=== PATIENT | female | born 1935 | race Caucasian/White ===

== ENCOUNTER → 2017-06-27 | Outpatient (CLI) | payer OTHER, BC ==
--- NOTE | 2017-06-27 09:19 | RAD ---
Examination: Left knee, three views History: Osteoarthritis Findings: No definite trauma, bone destruction, patellar displacement or synovial effusion. No joint narrowing is appreciated. Impression: No significant or acute abnormality demonstrated. Reported By:
--- NOTE | 2017-06-27 09:19 | RAD ---
Examination: Right knee, three views History: Osteoarthritis Findings: There is degenerative narrowing of lateral greater than medial compartments with marginal o steophytes. No fracture, osteolytic process or synovial effusion. Impression: Lateral and medial compartment osteoarthritis, no acute features demonstrated Reported By:
== END ==
LOC: RAD 08:39
PROVIDERS: ATTEND Nurse Practitioner Family
DX: M17.0 Bilateral primary osteoarthritis of knee (principal)
CPT/HCPCS: 73560

== ENCOUNTER 2025-01-13 05:59 | Observation (INO) ==
--- NOTE | 2025-01-13 06:14 | EKG ---
Test Reason : dizziness, numbness Blood Pressure : */* mmHG Vent. Rate : 61 BPM Atrial Rate : 61 BPM P-R Int : 260 ms QRS Dur : 102 ms QT Int : 482 ms P-R-T Axes : 77 -2 44 degrees QTc Int : 485 ms Atrial-paced rhythm with prolonged AV conduction Low voltage QRS Incomplete right bundle branch block Nonspecific ST and T wave abnormality Prolonged QT Abnormal ECG When compared with ECG of 28-JUN-2023 10:54, Electronic atrial pacemaker has replaced Sinus rhythm Borderline criteria for Inferior infarct are no longer present Confirmed by Ramesh Leung MD ([id number]) on 01/13/2025 7:27:17 AM Referred By: Confirmed By: Ramesh Leung MD
[2025-01-13 06:23] LABS: MEAN PLATELET VOLUME 8.0 fL (7.4-11.0); RED CELL DISTRIBUTION WIDTH 14.5 % (11.6-16.5)
[2025-01-13 06:35] LABS: INR 1.33 (0.8-1.3)
[2025-01-13 06:43] LABS: PLATELET MORPHOLOGY COMMENT NORMAL (NORMAL)
[2025-01-13 06:46] LABS: COR NA(FOR HYPERGLY) 141 mmol/L (136-145); CREATININE 0.84 mg/dL (0.55-1.02); eGFR NON BLACK RACES > 60 (>60)
--- NOTE | 2025-01-13 06:59 | DR.DIZZY ---
HPI Time seen Time Seen by Provider: 01/13/25 06:56 PCP Primary Care Physician: mya lawton HPI Comment HPI Comment: Patient states she has been having weakness and dizziness on and off for weeks and last night she had an episode while she was sitting and fell forward hitting her head. Patient states prior to that she had some tingling of her lip and numbness on her left upper extremity as well as weakness on her left lower extremity. 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 At this time, she states her symptoms are completely resolved. Complaint Chief Complaint:: pt stated on last night she had fall. she stated at that time she started having some weakness on her left side with dizzness. she stated on this morning the weakness and dizziness seem worse and it feels as if her left leg is going to give out. pt denies pain at this time. COVID-19 Coronavirus risk:travel/contact w/high risk person: No Has patient experienced Coronavirus symptoms: No Source History Provided: Patient Mode of Arrival Mode of Arrival: EMS Timing Onset of Chief Complaint: 01/13/25 PMH PMH Past Medical History: Yes Past Medical History: Hypertension and Hypothyroidism Past Surgical History: Yes Surgical History: Hysterectomy Past Surgical History Comment: pacemaker Family History History of Family Medical Conditions: No Social History Alcohol Use: None Do you use any recreational Drugs:: No Lives With: Family Lives Where: Home Travel Risk Coronavirus risk:travel/contact w/high risk person: No Has patient experienced Coronavirus symptoms: No Infectious screening Have you traveled outside the country in the last 6 months?: No Isolation: Standard ROS Review of Systems Constitutional: No Symptoms Reported Eyes: No Symptoms Reported ENTM: No Symptoms Reported Respiratoy: No Symptoms Reported; negative Short of Breath or Wheezing Cardiovascular: No Symptoms Reported; negative Chest Pain, Edema, Palpitations or Syncope Gastrointestinal/Abdominal: No Symptoms Reported Genitourinary: No Symptoms Reported Neurological: See HPI, Numbness, Tingling, Weakness and Dizziness; negative Seizure or Speech Problem Musculoskeletal: No Symptoms Reported Integumentary: No Symptoms Reported Hematologic/Lymphatic: No Symptoms Reported Endocrine: No Symptoms Reported Psychiatric: No Symptoms Reported All Other Systems: Reviewed and Negative PE Vital Signs Vitals: Vital Signs Temperature 97.9 F Pulse Rate 60 Pulse Rate 60 Pulse Rate 60 Pulse Rate 60 Respiratory Rate 20 Respiratory Rate 27 Respiratory Rate 20 Blood Pressure 142/63 Blood Pressure 149/64 Blood Pressure 195/77 O2 Sat by Pulse Oximetry 98 O2 Sat by Pulse Oximetry 97 O2 Sat by Pulse Oximetry 99 General Limitations: No Limitations General Appearance: Alert and In No Apparent Distress Head Head Exam: Normal Inspection Eyes Eye exam: Normal Appearance ENT ENT Exam: Normal Exam, Normal Oropharynx and Normal External Ear Exam Neck Neck Exam: Normal Inspection and Full ROM Chest Chest Inspection: Normal Inspection Respiratory Respiratory Exam: Normal Lung Sounds Bilat Cardiovascular Cardiovascular Exam: Regular Rate and Normal Rhythm Abdominal Exam Abdominal Exam: Normal Inspection, Normal Bowel Sounds and Soft Rectal Rectal Exam: Deferred Extremeties Extremities Exam: Normal Inspection and Full ROM Back Back Exam: Normal Inspection and Full ROM Neurologic Neurological Exam: Alert and Oriented X3 Speech: Fluid Speech Cerebellar Function: Finger to Nose: Normal DTR: Patellar (L): 2+ and patellar (R): 2+ Psychiatric Psychiatric Exam: Normal Affect and Normal Mood Skin Skin Exam: Warm, Dry, Intact and Normal Color ROR Labs Reviewed 01/13/25 06:13 01/13/25 06:13 Laboratory: WBC 10.0 X10^3/uL (3.6-10.0) 01/13/25 06:13 RBC 4.28 X10^6/uL (3.5-5.4) 01/13/25 06:13 Hgb 13.4 g/dL (12.0-16.0) 01/13/25 06:13 Hct 39.5 % (36.0-47.0) 01/13/25 06:13 MCV 92.3 fL (80.0-100.0) 01/13/25 06:13 MCH 31.2 pg (27.0-34.0) 01/13/25 06:13 MCHC 33.8 g/dL (33.0-35.0) 01/13/25 06:13 RDW 14.5 % (11.6-16.5) 01/13/25 06:13 Plt Count 227 X10^3/uL (150.0-450.0) 01/13/25 06:13 Plt Count Comment Adequate (ADEQUATE) 01/13/25 06:13 MPV 8.0 fL (7.4-11.0) 01/13/25 06:13 Neut % (Auto) 63.0 % (42.0-75.0) 01/13/25 06:13 Lymph % (Auto) 26.7 % (21.0-51.0) 01/13/25 06:13 [place] % (Auto) 5.6 % (0.0-13.0) 01/13/25 06:13 Eos % (Auto) 1.9 % (0.9-2.9) 01/13/25 06:13 Baso % (Auto) 2.8 % (0.2-1.0) H 01/13/25 06:13 Neut # (Auto) 6.3 x10^3/uL (2.2-4.8) H 01/13/25 06:13 Lymph # (Auto) 2.7 X10^3/uL (1.3-2.9) 01/13/25 06:13 [place] # (Auto) 0.6 x10^3/uL (0.3-0.8) 01/13/25 06:13 Eos # (Auto) 0.2 x10^3/uL (0.0-0.2) 01/13/25 06:13 Baso # (Auto) 0.3 X10^3/uL (0.0-0.1) H 01/13/25 06:13 Absolute Nucleated RBC 0.1 /100WBC 01/13/25 06:13 Total Counted 100 01/13/25 06:13 Neutrophils % (Manual) 56 % (39-76) 01/13/25 06:13 Lymphocytes % (Manual) 37 % (13-43) 01/13/25 06:13 Monocytes % (Manual) 5 % (4-9) 01/13/25 06:13 Eosinophils % (Manual) 1 % (0-6) 01/13/25 06:13 Atypical Lymphocytes Present 01/13/25 06:13 Plt Morphology Comment Normal (NORMAL) 01/13/25 06:13 RBC Morphology Normal (NORMAL) 01/13/25 06:13 PT 16.6 SECONDS (11.8-14.3) 01/13/25 06:13 INR Target Range - 01/13/25 06:13 INR 1.33 (0.8-1.3) H 01/13/25 06:13 APTT 33.3 SECONDS (22.9-36.5) 01/13/25 06:13 PTT Comment - 01/13/25 06:13 Sodium 141 mmol/L (136-145) 01/13/25 06:13 Corrected Sodium 141 mmol/L (136-145) 01/13/25 06:13 Potassium 4.2 mmol/L (3.5-5.1) 01/13/25 06:13 Chloride 103 mmol/L (98-107) 01/13/25 06:13 Carbon Dioxide 30.8 mmol/L (21-32) 01/13/25 06:13 BUN 13 mg/dL (7-18) 01/13/25 06:13 Creatinine 0.84 mg/dL (0.55-1.02) 01/13/25 06:13 Est GFR (MDRD) Af Amer > 60 (>60) 01/13/25 06:13 Est GFR (MDRD) Non-Af > 60 (>60) 01/13/25 06:13 Glucose 113 mg/dL (65-99) H 01/13/25 06:13 Calcium 9.4 mg/dL (8.5-10.1) 01/13/25 06:13 Corrected Calcium TNP 01/13/25 06:13 Total Bilirubin 0.40 mg/dL (0.2-1.0) 01/13/25 06:13 AST 15 Units/L (15-37) 01/13/25 06:13 ALT 17 Units/L (12-78) 01/13/25 06:13 Alkaline Phosphatase 153 Units/L (46-116) H 01/13/25 06:13 Creatine Kinase 23 Units/L (26-192) L 01/13/25 06:13 Troponin I High Sens 4.2 ng/L (4.0-60.0) 01/13/25 06:13 Total Protein 9.3 g/dL (6.4-8.2) H 01/13/25 06:13 Albumin 4.0 g/dL (3.4-5.0) 01/13/25 06:13 Globulin 5.3 g/dL (2.5-4.5) H 01/13/25 06:13 Albumin/Globulin Ratio 0.8 Ratio (1.1-2.1) L 01/13/25 06:13 Opioid Opioid Risk Tool Age (Min box if 16-45): No History of Preadolescent Sexual Abuse: No Total: 0 Total Score Risk Category: Low Risk Copyright: Sameer DUMONT predicting aberrant behaviors Discharge Plan Discharge Plan Patient Disposition: 01 HOME, SELF-CARE Condition: Stable Prescriptions: No Action levothyroxine [Synthroid] 50 mcg tablet 50 mcg PO QDAY Qty: 90 3RF furosemide 20 mg tablet 20 mg PO QDAY PRN Eliquis 5 mg tablet 5 mg PO BID metoprolol tartrate 25 mg tablet 25 mg PO BID flecainide 100 mg tablet 100 mg PO Q12H Health Concerns: Post Hospitalization: new medications and changes needed to prevent readmission or further decline. Pt educated and given instructions on all concerns. Plan of Treatment: Continue with present treatment and follow up plan. Pt is to keep follow up appointment as instructed and take medications as ordered. Follow ups/Referrals Follow ups/Referrals: NFD,None [Primary Care Provider] - 3 days Instructions Stand Alone Forms: Find Help Web Site, Post Hospital Follow Up Care Print Language: SYRIAC
--- NOTE | 2025-01-13 08:06 | CT ---
EXAM: BRAIN W/O CON HISTORY: DIZZINESS, NUMBNESS; COMPARISON: None available. TECHNIQUE: Multiple axial images of the brain were obtained from the skull base to the vertex without administration of IV contrast. Dose reduction techniques including Automated Exposure Control (AEC) and adjustment of mA and kV were utilized. FINDINGS: No acute intraparenchymal hemorrhage or mass can be identified. No extra-axial fluid collections are seen. No alteration in the attenuation of the brain parenchyma can be identified to suggest acute or subacute ischemic change. The ventricular system is symmetric and nondilated. There is chronic periventricular white matter disease observed and age-appropriate generalized atrophy. IMPRESSION: 1. No acute intracranial process can be identified. 2. 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 3. Age-appropriate atrophic changes are seen. THIS IS AN ELECTRONICALLY VERIFIED FINAL REPORT 01/13/2025 8:03 AM - Electronically signed by Hiram Bustos MD
--- NOTE | 2025-01-13 08:06 | CT ---
EXAM: CERVICAL SPINE W/O CON HISTORY: fall; COMPARISON: None available. TECHNIQUE: Multiple axial images of the cervical spine were obtained from the skull base to the thoracic inlet without administration of IV contrast. Sagittal and coronal reformats were performed and reviewed. Dose reduction techniques including Automated Exposure Control (AEC) and adjustment of mA and kV were utilized. FINDINGS: Alignment of the cervical spine is maintained. No evidence for acute cortical disruption or subluxation can be seen. The central canal remains free of compromise from bony fragments or significant soft tissue encroachment. The posterior elements appear unremarkable. The prevertebral soft tissues are normal in their appearance. In addition, the surrounding paraspinous soft tissues are unremarkable. Moderate to advanced degenerative changes of the cervical spine are incidentally noted. IMPRESSION: No evidence for traumatic injury of the cervical spine. THIS IS AN ELECTRONICALLY VERIFIED FINAL REPORT 01/13/2025 8:02 AM - Electronically signed by Hiram Bustos MD
[2025-01-13 08:36] LABS: BLOOD/HEMOGLOBIN,URINE 1+ (NEGATIVE); LEUKOCYTE ESTERASE ,URINE 2+ (NEGATIVE); NITRITES,URINE NEGATIVE (NEGATIVE)
[2025-01-13 08:37] LABS: APPEARANCE,URINE CLEAR (CLEAR)
[2025-01-13 08:42] LABS: SQUAMOUS EPITHELIAL CELL,UR FEW /HPF (NEGATIVE)
[2025-01-13] MEDS: ROCEPHIN VIAL 2 GRAMS IV ONE (08:54)
--- NOTE | 2025-01-13 08:57 | RAD ---
EXAM: CHEST, 1 VIEW HISTORY: DIZZINESS, NUMBNESS; COMPARISON: None FINDINGS: The lungs are clear. No pneumothorax or effusion. Elevated right hemidiaphragm is noted. This may be due to an eventration. Cardiomegaly is present. The bones are unremarkable. A left subclavian ICD is present with the leads in expected location. EKG leads are noted. IMPRESSION: 1. Cardiomegaly THIS IS AN ELECTRONICALLY VERIFIED FINAL REPORT 01/13/2025 8:54 AM - Electronically signed by Lauri Krueger MD
--- NOTE | 2025-01-13 09:15 | DR.DIZZY ---
HPI Time seen Time Seen by Provider: 01/13/25 06:56 PCP Primary Care Physician: mya lawton Complaint Chief Complaint:: pt stated on last night she had fall. she stated at that time she started having some weakness on her left side with dizzness. she stated on this morning the weakness and dizziness seem worse and it feels as if her left leg is going to give out. pt denies pain at this time. COVID-19 Coronavirus risk:travel/contact w/high risk person: No Has patient experienced Coronavirus symptoms: No Source History Provided: Patient Mode of Arrival Mode of Arrival: EMS Timing Onset of Chief Complaint: 01/13/25 Context Stroke Symptoms: Dizziness PMH PMH Past Medical History: Yes Past Medical History: Hypertension and Hypothyroidism Past Surgical History: Yes Surgical History: Hysterectomy Past Surgical History Comment: pacemaker Family History History of Family Medical Conditions: No Social History Alcohol Use: None Do you use any recreational Drugs:: No Lives With: Family Lives Where: Home Travel Risk Coronavirus risk:travel/contact w/high risk person: No Has patient experienced Coronavirus symptoms: No Infectious screening Have you traveled outside the country in the last 6 months?: No Isolation: Standard PE Vital Signs Vitals: Vital Signs Temperature 97.9 F Pulse Rate 60 Pulse Rate 60 Pulse Rate 61 Pulse Rate 60 Pulse Rate 62 Pulse Rate 60 Pulse Rate 60 Pulse Rate 60 Pulse Rate 60 Pulse Rate 60 Pulse Rate 60 Pulse Rate 60 Pulse Rate 60 Pulse Rate 60 Pulse Rate 60 Respiratory Rate 26 Respiratory Rate 52 Respiratory Rate 24 Respiratory Rate 24 Respiratory Rate 25 Respiratory Rate 23 Respiratory Rate 23 Respiratory Rate 29 Respiratory Rate 23 Respiratory Rate 30 Respiratory Rate 51 Respiratory Rate 20 Respiratory Rate 27 Respiratory Rate 20 Blood Pressure 142/65 Blood Pressure 149/65 Blood Pressure 153/67 Blood Pressure 155/70 Blood Pressure 145/63 Blood Pressure 145/63 Blood Pressure 145/63 Blood Pressure 145/63 Blood Pressure 138/63 Blood Pressure 138/63 Blood Pressure 138/63 Blood Pressure 129/64 Blood Pressure 146/65 Blood Pressure 152/64 Blood Pressure 144/64 Blood Pressure 142/63 Blood Pressure 149/64 Blood Pressure 195/77 O2 Sat by Pulse Oximetry 96 O2 Sat by Pulse Oximetry 98 O2 Sat by Pulse Oximetry 96 O2 Sat by Pulse Oximetry 96 O2 Sat by Pulse Oximetry 96 O2 Sat by Pulse Oximetry 95 O2 Sat by Pulse Oximetry 95 O2 Sat by Pulse Oximetry 97 O2 Sat by Pulse Oximetry 96 O2 Sat by Pulse Oximetry 95 O2 Sat by Pulse Oximetry 94 O2 Sat by Pulse Oximetry 98 O2 Sat by Pulse Oximetry 97 O2 Sat by Pulse Oximetry 99 COURSE Treatment Treatment: Patient signed out to my service at 8:00 AM today by outgoing doctor. CT reports of head and neck with discussed with patient. She is not being admitted to the hospital for further management and observation. Consultation Consultation Comments: Discussed patient with Dr. Ansari. She will admit patient. Education/Counseling Education/Counseling: Patient Educated On: Diagnosis ROR Labs Reviewed Laboratory Results Reviewed?: Yes 01/13/25 06:13 01/13/25 06:13 Laboratory: WBC 10.0 X10^3/uL (3.6-10.0) 01/13/25 06:13 RBC 4.28 X10^6/uL (3.5-5.4) 01/13/25 06:13 Hgb 13.4 g/dL (12.0-16.0) 01/13/25 06:13 Hct 39.5 % (36.0-47.0) 01/13/25 06:13 MCV 92.3 fL (80.0-100.0) 01/13/25 06:13 MCH 31.2 pg (27.0-34.0) 01/13/25 06:13 MCHC 33.8 g/dL (33.0-35.0) 01/13/25 06:13 RDW 14.5 % (11.6-16.5) 01/13/25 06:13 Plt Count 227 X10^3/uL (150.0-450.0) 01/13/25 06:13 Plt Count Comment Adequate (ADEQUATE) 01/13/25 06:13 MPV 8.0 fL (7.4-11.0) 01/13/25 06:13 Neut % (Auto) 63.0 % (42.0-75.0) 01/13/25 06:13 Lymph % (Auto) 26.7 % (21.0-51.0) 01/13/25 06:13 [place] % (Auto) 5.6 % (0.0-13.0) 01/13/25 06:13 Eos % (Auto) 1.9 % (0.9-2.9) 01/13/25 06:13 Baso % (Auto) 2.8 % (0.2-1.0) H 01/13/25 06:13 Neut # (Auto) 6.3 x10^3/uL (2.2-4.8) H 01/13/25 06:13 Lymph # (Auto) 2.7 X10^3/uL (1.3-2.9) 01/13/25 06:13 [place] # (Auto) 0.6 x10^3/uL (0.3-0.8) 01/13/25 06:13 Eos # (Auto) 0.2 x10^3/uL (0.0-0.2) 01/13/25 06:13 Baso # (Auto) 0.3 X10^3/uL (0.0-0.1) H 01/13/25 06:13 Absolute Nucleated RBC 0.1 /100WBC 01/13/25 06:13 Total Counted 100 01/13/25 06:13 Neutrophils % (Manual) 56 % (39-76) 01/13/25 06:13 Lymphocytes % (Manual) 37 % (13-43) 01/13/25 06:13 Monocytes % (Manual) 5 % (4-9) 01/13/25 06:13 Eosinophils % (Manual) 1 % (0-6) 01/13/25 06:13 Atypical Lymphocytes Present 01/13/25 06:13 Plt Morphology Comment Normal (NORMAL) 01/13/25 06:13 RBC Morphology Normal (NORMAL) 01/13/25 06:13 PT 16.6 SECONDS (11.8-14.3) 01/13/25 06:13 INR Target Range - 01/13/25 06:13 INR 1.33 (0.8-1.3) H 01/13/25 06:13 APTT 33.3 SECONDS (22.9-36.5) 01/13/25 06:13 PTT Comment - 01/13/25 06:13 Sodium 141 mmol/L (136-145) 01/13/25 06:13 Corrected Sodium 141 mmol/L (136-145) 01/13/25 06:13 Potassium 4.2 mmol/L (3.5-5.1) 01/13/25 06:13 Chloride 103 mmol/L (98-107) 01/13/25 06:13 Carbon Dioxide 30.8 mmol/L (21-32) 01/13/25 06:13 BUN 13 mg/dL (7-18) 01/13/25 06:13 Creatinine 0.84 mg/dL (0.55-1.02) 01/13/25 06:13 Est GFR (MDRD) Af Amer > 60 (>60) 01/13/25 06:13 Est GFR (MDRD) Non-Af > 60 (>60) 01/13/25 06:13 Glucose 113 mg/dL (65-99) H 01/13/25 06:13 Calcium 9.4 mg/dL (8.5-10.1) 01/13/25 06:13 Corrected Calcium TNP 01/13/25 06:13 Total Bilirubin 0.40 mg/dL (0.2-1.0) 01/13/25 06:13 AST 15 Units/L (15-37) 01/13/25 06:13 ALT 17 Units/L (12-78) 01/13/25 06:13 Alkaline Phosphatase 153 Units/L (46-116) H 01/13/25 06:13 Creatine Kinase 23 Units/L (26-192) L 01/13/25 06:13 Troponin I High Sens 4.2 ng/L (4.0-60.0) 01/13/25 06:13 B-Natriuretic Peptide 186 pg/mL (0-79) H 01/13/25 06:13 Total Protein 9.3 g/dL (6.4-8.2) H 01/13/25 06:13 Albumin 4.0 g/dL (3.4-5.0) 01/13/25 06:13 Globulin 5.3 g/dL (2.5-4.5) H 01/13/25 06:13 Albumin/Globulin Ratio 0.8 Ratio (1.1-2.1) L 01/13/25 06:13 Specimen Type Clean catch urine 01/13/25 08:29 Urine Color Pale yellow (YELLOW) 01/13/25 08:29 Urine Appearance Clear (CLEAR) 01/13/25 08:29 Urine pH 6.0 (5.0 - 8.0) 01/13/25 08:29 Ur Specific [place] 1.010 (1.000-1.030) 01/13/25 08:29 Urine Protein 1+ (NEGATIVE) 01/13/25 08:29 Urine Glucose (UA) Negative (NEGATIVE) 01/13/25 08:29 Urine Ketones Negative (NEGATIVE) 01/13/25 08:29 Urine Blood 1+ (NEGATIVE) 01/13/25 08:29 Urine Nitrite Negative (NEGATIVE) 01/13/25 08:29 Urine Bilirubin Negative (NEGATIVE) 01/13/25 08:29 Urine Urobilinogen Normal (NORMAL) 01/13/25 08:29 Ur Leukocyte Esterase 2+ (NEGATIVE) 01/13/25 08:29 Urine RBC 3-5 /HPF (0-3) A 01/13/25 08:29 Urine WBC 3-5 /HPF (0-5) 01/13/25 08:29 Ur Squamous Epith Cells Few /HPF (NEGATIVE) 01/13/25 08:29 Amorphous Sediment Trace /HPF (NEGATIVE) 01/13/25 08:29 Urine Bacteria Trace /HPF (NEGATIVE) 01/13/25 08:29 Ur Culture Indicated? Yes/culture set up 01/13/25 08:29 XRAY XRAY Interpreted by: Radiologist (Reports noted.) Opioid Opioid Risk Tool Age (Min box if 16-45): No History of Preadolescent Sexual Abuse: No Total: 0 Total Score Risk Category: Low Risk Copyright: Sameer DUMONT predicting aberrant behaviors Discharge Plan Diagnosis Discharge Problem: Left-sided weakness, Generalized weakness, UTI (urinary tract infection), Dizziness, TIA (transient ischemic attack) Discharge Plan Patient Disposition: 09 ADMITTED INPATIENT Condition: Stable Orders to Discharge Patient Discharge Orders: Transfer (Routine); Ordered 01/13/25 Ordered By: FORTUNATO ROTHMAN
--- NOTE | 2025-01-13 10:33 | DR.DIZZY ---
HPI Time seen Time Seen by Provider: 01/13/25 06:56 PCP Primary Care Physician: mya lawton Complaint Chief Complaint:: pt stated on last night she had fall. she stated at that time she started having some weakness on her left side with dizzness. she stated on this morning the weakness and dizziness seem worse and it feels as if her left leg is going to give out. pt denies pain at this time. COVID-19 Coronavirus risk:travel/contact w/high risk person: No Has patient experienced Coronavirus symptoms: No Source History Provided: Patient Mode of Arrival Mode of Arrival: EMS Timing Onset of Chief Complaint: 01/13/25 Context Stroke Symptoms: Dizziness PMH PMH Past Medical History: Yes Past Medical History: Hypertension and Hypothyroidism Past Surgical History: Yes Surgical History: Hysterectomy Past Surgical History Comment: pacemaker Family History History of Family Medical Conditions: No Social History Alcohol Use: None Do you use any recreational Drugs:: No Lives With: Family Lives Where: Home Travel Risk Coronavirus risk:travel/contact w/high risk person: No Has patient experienced Coronavirus symptoms: No Infectious screening Have you traveled outside the country in the last 6 months?: No Isolation: Standard PE Vital Signs Vitals: Vital Signs Temperature 97.9 F Pulse Rate 60 Pulse Rate 60 Pulse Rate 61 Pulse Rate 60 Pulse Rate 62 Pulse Rate 60 Pulse Rate 60 Pulse Rate 60 Pulse Rate 60 Pulse Rate 60 Pulse Rate 60 Pulse Rate 60 Pulse Rate 60 Pulse Rate 60 Pulse Rate 60 Respiratory Rate 26 Respiratory Rate 52 Respiratory Rate 24 Respiratory Rate 24 Respiratory Rate 25 Respiratory Rate 23 Respiratory Rate 23 Respiratory Rate 29 Respiratory Rate 23 Respiratory Rate 30 Respiratory Rate 51 Respiratory Rate 20 Respiratory Rate 27 Respiratory Rate 20 Blood Pressure 142/65 Blood Pressure 149/65 Blood Pressure 153/67 Blood Pressure 155/70 Blood Pressure 145/63 Blood Pressure 145/63 Blood Pressure 145/63 Blood Pressure 145/63 Blood Pressure 138/63 Blood Pressure 138/63 Blood Pressure 138/63 Blood Pressure 129/64 Blood Pressure 146/65 Blood Pressure 152/64 Blood Pressure 144/64 Blood Pressure 142/63 Blood Pressure 149/64 Blood Pressure 195/77 O2 Sat by Pulse Oximetry 96 O2 Sat by Pulse Oximetry 98 O2 Sat by Pulse Oximetry 96 O2 Sat by Pulse Oximetry 96 O2 Sat by Pulse Oximetry 96 O2 Sat by Pulse Oximetry 95 O2 Sat by Pulse Oximetry 95 O2 Sat by Pulse Oximetry 97 O2 Sat by Pulse Oximetry 96 O2 Sat by Pulse Oximetry 95 O2 Sat by Pulse Oximetry 94 O2 Sat by Pulse Oximetry 98 O2 Sat by Pulse Oximetry 97 O2 Sat by Pulse Oximetry 99 COURSE Treatment Treatment: CHART HAVE BEEN COMPLETED. [facility]OR Labs Reviewed 01/13/25 06:13 01/13/25 06:13 Laboratory: WBC 10.0 X10^3/uL (3.6-10.0) 01/13/25 06:13 RBC 4.28 X10^6/uL (3.5-5.4) 01/13/25 06:13 Hgb 13.4 g/dL (12.0-16.0) 01/13/25 06:13 Hct 39.5 % (36.0-47.0) 01/13/25 06:13 MCV 92.3 fL (80.0-100.0) 01/13/25 06:13 MCH 31.2 pg (27.0-34.0) 01/13/25 06:13 MCHC 33.8 g/dL (33.0-35.0) 01/13/25 06:13 RDW 14.5 % (11.6-16.5) 01/13/25 06:13 Plt Count 227 X10^3/uL (150.0-450.0) 01/13/25 06:13 Plt Count Comment Adequate (ADEQUATE) 01/13/25 06:13 MPV 8.0 fL (7.4-11.0) 01/13/25 06:13 Neut % (Auto) 63.0 % (42.0-75.0) 01/13/25 06:13 Lymph % (Auto) 26.7 % (21.0-51.0) 01/13/25 06:13 [place] % (Auto) 5.6 % (0.0-13.0) 01/13/25 06:13 Eos % (Auto) 1.9 % (0.9-2.9) 01/13/25 06:13 Baso % (Auto) 2.8 % (0.2-1.0) H 01/13/25 06:13 Neut # (Auto) 6.3 x10^3/uL (2.2-4.8) H 01/13/25 06:13 Lymph # (Auto) 2.7 X10^3/uL (1.3-2.9) 01/13/25 06:13 [place] # (Auto) 0.6 x10^3/uL (0.3-0.8) 01/13/25 06:13 Eos # (Auto) 0.2 x10^3/uL (0.0-0.2) 01/13/25 06:13 Baso # (Auto) 0.3 X10^3/uL (0.0-0.1) H 01/13/25 06:13 Absolute Nucleated RBC 0.1 /100WBC 01/13/25 06:13 Total Counted 100 01/13/25 06:13 Neutrophils % (Manual) 56 % (39-76) 01/13/25 06:13 Lymphocytes % (Manual) 37 % (13-43) 01/13/25 06:13 Monocytes % (Manual) 5 % (4-9) 01/13/25 06:13 Eosinophils % (Manual) 1 % (0-6) 01/13/25 06:13 Atypical Lymphocytes Present 01/13/25 06:13 Plt Morphology Comment Normal (NORMAL) 01/13/25 06:13 RBC Morphology Normal (NORMAL) 01/13/25 06:13 PT 16.6 SECONDS (11.8-14.3) 01/13/25 06:13 INR Target Range - 01/13/25 06:13 INR 1.33 (0.8-1.3) H 01/13/25 06:13 APTT 33.3 SECONDS (22.9-36.5) 01/13/25 06:13 PTT Comment - 01/13/25 06:13 Sodium 141 mmol/L (136-145) 01/13/25 06:13 Corrected Sodium 141 mmol/L (136-145) 01/13/25 06:13 Potassium 4.2 mmol/L (3.5-5.1) 01/13/25 06:13 Chloride 103 mmol/L (98-107) 01/13/25 06:13 Carbon Dioxide 30.8 mmol/L (21-32) 01/13/25 06:13 BUN 13 mg/dL (7-18) 01/13/25 06:13 Creatinine 0.84 mg/dL (0.55-1.02) 01/13/25 06:13 Est GFR (MDRD) Af Amer > 60 (>60) 01/13/25 06:13 Est GFR (MDRD) Non-Af > 60 (>60) 01/13/25 06:13 Glucose 113 mg/dL (65-99) H 01/13/25 06:13 Calcium 9.4 mg/dL (8.5-10.1) 01/13/25 06:13 Corrected Calcium TNP 01/13/25 06:13 Total Bilirubin 0.40 mg/dL (0.2-1.0) 01/13/25 06:13 AST 15 Units/L (15-37) 01/13/25 06:13 ALT 17 Units/L (12-78) 01/13/25 06:13 Alkaline Phosphatase 153 Units/L (46-116) H 01/13/25 06:13 Creatine Kinase 23 Units/L (26-192) L 01/13/25 06:13 Troponin I High Sens 4.2 ng/L (4.0-60.0) 01/13/25 06:13 B-Natriuretic Peptide 186 pg/mL (0-79) H 01/13/25 06:13 Total Protein 9.3 g/dL (6.4-8.2) H 01/13/25 06:13 Albumin 4.0 g/dL (3.4-5.0) 01/13/25 06:13 Globulin 5.3 g/dL (2.5-4.5) H 01/13/25 06:13 Albumin/Globulin Ratio 0.8 Ratio (1.1-2.1) L 01/13/25 06:13 Specimen Type Clean catch urine 01/13/25 08:29 Urine Color Pale yellow (YELLOW) 01/13/25 08:29 Urine Appearance Clear (CLEAR) 01/13/25 08:29 Urine pH 6.0 (5.0 - 8.0) 01/13/25 08:29 Ur Specific [place] 1.010 (1.000-1.030) 01/13/25 08:29 Urine Protein 1+ (NEGATIVE) 01/13/25 08:29 Urine Glucose (UA) Negative (NEGATIVE) 01/13/25 08:29 Urine Ketones Negative (NEGATIVE) 01/13/25 08: Urine Blood 1+ (NEGATIVE) 01/13/25 08: Urine Nitrite Negative (NEGATIVE) 01/13/25 08:29 Urine Bilirubin Negative (NEGATIVE) 01/13/25 08:29 Urine Urobilinogen Normal (NORMAL) 01/13/25 08:29 Ur Leukocyte Esterase 2+ (NEGATIVE) 01/13/25 08:29 Urine RBC 3-5 /HPF (0-3) A 01/13/25 08:29 Urine WBC 3-5 /HPF (0-5) 01/13/25 08:29 Ur Squamous Epith Cells Few /HPF (NEGATIVE) 01/13/25 08:29 Amorphous Sediment Trace /HPF (NEGATIVE) 01/13/25 08:29 Urine Bacteria Trace /HPF (NEGATIVE) 01/13/25 08:29 Ur Culture Indicated? Yes/culture set up 01/13/25 08:29 Opioid Opioid Risk Tool Age (Min box if 16-45): No History of Preadolescent Sexual Abuse: No Total: 0 Total Score Risk Category: Low Risk Copyright: Sameer DUMONT predicting aberrant behaviors Discharge Plan Diagnosis Discharge Problem: Left-sided weakness, Generalized weakness, UTI (urinary tract infection), Dizziness, TIA (transient ischemic attack) Discharge Plan Patient Disposition: 09 ADMITTED INPATIENT Condition: Stable Orders to Discharge Patient Discharge Orders: Transfer (Routine); Ordered 01/13/25 Ordered By: FORTUNATO ROTHMAN
[2025-01-13 10:40] VITALS: BMI 27.2
[2025-01-13] MEDS ORDERED: LASIX PO PRN (10:53)
[2025-01-13] MEDS: NS 1,000 ML IV 1,000 ML IV SCH (11:30)
[2025-01-13] MEDS: ELIQUIS PO SCH ×2 (11:30→12:28)
[2025-01-13] MEDS: LOPRESSOR TAB 25 MG PO SCH ×2 (11:30→12:28)
[2025-01-13] MEDS: LOPRESSOR TAB 25 MG ONE (11:36)
[2025-01-13] MEDS: ELIQUIS ONE (11:36)
--- NOTE | 2025-01-13 12:22 | VAS ---
EXAM: CAROTID US HISTORY: TIA, LEFT SIDED WEAKNESS, DIZZINESS; COMPARISON: None TECHNIQUE: 52 images made by the kitchen runner. [place] scale and color flow Doppler images of the right carotid arterial system, left carotid arterial system, and vertebral arterial system were obtained. FINDINGS: Velocities are measured in centimeters per second. Recommendations are based on peer reviewed published data from Society of Radiologists in Ultrasound Consensus Conference, 2003. Right side: Right common carotid and internal carotid arteries are widely patent. Minimal soft plaque is present in the carotid bulb. Relevant systolic velocity in the right common carotid artery measured 57. Peak systolic velocity in the right internal carotid artery measured 80. This yields a systolic velocity ratio of 1.4. The peak ICA end diastolic velocity measured 18. There is no hemodynamically significant stenosis. Right external carotid artery was patent. Flow in the right vertebral artery was antegrade. Left side: Left common carotid and internal carotid arteries are widely patent. Minimal hard plaque is present in the left carotid bulb. Relevant systolic velocity in the left common carotid artery measured 46. Peak systolic velocity in the left internal carotid artery measured 63. This yields a systolic velocity ratio of 1.4. The peak ICA end diastolic velocity measured 16. There is no hemodynamically significant stenosis. Left external carotid artery was patent. Flow in the left vertebral artery was antegrade. IMPRESSION: 1. Minimal bilateral carotid bulb plaque disease 2. No significant carotid stenosis THIS IS AN ELECTRONICALLY VERIFIED FINAL REPORT 01/13/2025 12:10 PM - Electronically signed by Lauri Krueger MD
[2025-01-13] MEDS: TAMBOCOR PO ONE (12:29)
--- NOTE | 2025-01-13 12:29 | DR.H&P ---
H&P History & Physical for Day of: H&P Date: 01/13/25 Chief Complaint Chief Complaint: dizziness, fall History of Present Illness History of Present Illness: Patient is a 89-year-old female with a past medical history of atrial fibrillation, pacemaker, hypertension, hypothyroidism presented with dizziness and weakness. She reports having the symptoms for the past few weeks. Her blood pressure has been well-controlled. She reports getting up last night and felt like her legs gave out. She did fall but did not have any injuries and was able to get back up. She was initially having some numbness and tingling in the left index finger and around her lips which has resolved. ER workup showed brain CT with no acute changes, CT cervical spine negative for acute fracture. UA was suggestive of infection, urine culture pending. She was started on IV Rocephin. She was admitted for TIA/weakness. She does not have any unilateral weakness in upper or lower extremity. Denies having history of CVA. Denies nausea, vomiting or diarrhea. She does report urinary urgency and frequency. Labs/imaging reviewed: - WBC 10.0 hemoglobin 13.4 platelet 227 creatinine 0.84 potassium 4.2 glucose 113 - CT brain and cervical CT reviewed Plan: Admit to [facility] with telemetry. Continue IV Rocephin, follow pending cultures. Resume home medications. Replace electrolytes as per protocol. Will order carotid ultrasound and echo. Orthostatic vitals. Neurochecks. Fall precautions. Physical therapy as tolerated. Monitor a.m. labs and imaging. Past Medical History Past Medical History: Hypertension and Hypothyroidism Past Surgical History Surgical History: Hysterectomy Social History Alcohol Use: None Medications Home Medications: Home Medications Medication Instructions Recorded Confirmed Type apixaban 5 mg tablet (Eliquis) 5 mg PO BID 08/07/23 History furosemide 20 mg tablet 20 mg PO QDAY PRN 08/07/23 0 01/13/25 History flecainide 100 mg tablet 100 mg PO Q12H 01/13/2501/31 History metoprolol tartrate 25 mg tablet 25 mg PO BID 01/13/25 01/13/25 History Allergies Allergies Allergy/AdvReac Type Severity Reaction Status Date / Time No Known Drug Allergies Allergy Unknown Verified 09/16/24 10:44 Labs 01/13/25 06:13 01/13/25 06:13 Labs: Laboratory WBC 10.0 X10^3/uL (3.6-10.0) 01/13/25 06:13 RBC 4.28 X10^6/uL (3.5-5.4) 01/13/25 06:13 Hgb 13.4 g/dL (12.0-16.0) 01/13/25 06:13 Hct 39.5 % (36.0-47.0) 01/13/25 06:13 MCV 92.3 fL (80.0-100.0) 01/13/25 06:13 MCH 31.2 pg (27.0-34.0) 01/13/25 06:13 MCHC 33.8 g/dL (33.0-35.0) 01/13/25 06:13 RDW 14.5 % (11.6-16.5) 01/13/25 06:13 Plt Count 227 X10^3/uL (150.0-450.0) 01/13/25 06:13 Plt Count Comment Adequate (ADEQUATE) 01/13/25 06:13 MPV 8.0 fL (7.4-11.0) 01/13/25 06:13 Neut % (Auto) 63.0 % (42.0-75.0) 01/13/25 06:13 Lymph % (Auto) 26.7 % (21.0-51.0) 01/13/25 06:13 [place] % (Auto) 5.6 % (0.0-13.0) 01/13/25 06:13 Eos % (Auto) 1.9 % (0.9-2.9) 01/13/25 06:13 Baso % (Auto) 2.8 % (0.2-1.0) H 01/13/25 06:13 Neut # (Auto) 6.3 x10^3/uL (2.2-4.8) H 01/13/25 06:13 Lymph # (Auto) 2.7 X10^3/uL (1.3-2.9) 01/13/25 06:13 [place] # (Auto) 0.6 x10^3/uL (0.3-0.8) 01/13/25 06:13 Eos # (Auto) 0.2 x10^3/uL (0.0-0.2) 01/13/25 06:13 Baso # (Auto) 0.3 X10^3/uL (0.0-0.1) H 01/13/25 06:13 Absolute Nucleated RBC 0.1 /100WBC 01/13/25 06:13 Total Counted 100 01/13/25 06:13 Neutrophils % (Manual) 56 % (39-76) 01/13/25 06:13 Lymphocytes % (Manual) 37 % (13-43) 01/13/25 06:13 Monocytes % (Manual) 5 % (4-9) 01/13/25 06:13 Eosinophils % (Manual) 1 % (0-6) 01/13/25 06:13 Atypical Lymphocytes Present 01/13/25 06:13 Plt Morphology Comment Normal (NORMAL) 01/13/25 06:13 RBC Morphology Normal (NORMAL) 01/13/25 06:13 PT 16.6 SECONDS (11.8-14.3) 01/13/25 06:13 INR Target Range - 01/13/25 06:13 INR 1.33 (0.8-1.3) H 01/13/25 06:13 APTT 33.3 SECONDS (22.9-36.5) 01/13/25 06:13 PTT Comment - 01/13/25 06:13 Sodium 141 mmol/L (136-145) 01/13/25 06:13 Corrected Sodium 141 mmol/L (136-145) 01/13/25 06:13 Potassium 4.2 mmol/L (3.5-5.1) 01/13/25 06:13 Chloride 103 mmol/L (98-107) 01/13/25 06:13 Carbon Dioxide 30.8 mmol/L (21-32) 01/13/25 06:13 BUN 13 mg/dL (7-18) 01/13/25 06:13 Creatinine 0.84 mg/dL (0.55-1.02) 01/13/25 06:13 Est GFR (MDRD) Af Amer > 60 (>60) 01/13/25 06:13 Est GFR (MDRD) Non-Af > 60 (>60) 01/13/25 06:13 Glucose 113 mg/dL (65-99) H 01/13/25 06:13 Calcium 9.4 mg/dL (8.5-10.1) 01/13/25 06:13 Corrected Calcium TNP 01/13/25 06:13 Total Bilirubin 0.40 mg/dL (0.2-1.0) 01/13/25 06:13 AST 15 Units/L (15-37) 01/13/25 06:13 ALT 17 Units/L (12-78) 01/13/25 06:13 Alkaline Phosphatase 153 Units/L (46-116) H 01/13/25 06:13 Creatine Kinase 23 Units/L (26-192) L 01/13/25 06:13 Troponin I High Sens 4.2 ng/L (4.0-60.0) 01/13/25 06:13 B-Natriuretic Peptide 186 pg/mL (0-79) H 01/13/25 06:13 Total Protein 9.3 g/dL (6.4-8.2) H 01/13/25 06:13 Albumin 4.0 g/dL (3.4-5.0) 01/13/25 06:13 Globulin 5.3 g/dL (2.5-4.5) H 01/13/25 06:13 Albumin/Globulin Ratio 0.8 Ratio (1.1-2.1) L 01/13/25 06:13 Specimen Type Clean catch urine 01/13/25 08:29 Urine Color Pale yellow (YELLOW) 01/13/25 08:29 Urine Appearance Clear (CLEAR) 01/13/25 08:29 Urine pH 6.0 (5.0 - 8.0) 01/13/25 08:29 Ur Specific [place] 1.010 (1.000-1.030) 01/13/25 08:29 Urine Protein 1+ (NEGATIVE) 01/13/25 08:29 Urine Glucose (UA) Negative (NEGATIVE) 01/13/25 08: Urine Ketones Negative (NEGATIVE) 01/13/25 08: Urine Blood 1+ (NEGATIVE) 01/13/25 08: Urine Nitrite Negative (NEGATIVE) 01/13/25 08:29 Urine Bilirubin Negative (NEGATIVE) 01/13/25 08:29 Urine Urobilinogen Normal (NORMAL) 01/13/25 08:29 Ur Leukocyte Esterase 2+ (NEGATIVE) 01/13/25 08:29 Urine RBC 3-5 /HPF (0-3) A 01/13/25 08:29 Urine WBC 3-5 /HPF (0-5) 01/13/25 08:29 Ur Squamous Epith Cells Few /HPF (NEGATIVE) 01/13/25 08:29 Amorphous Sediment Trace /HPF (NEGATIVE) 01/13/25 08:29 Urine Bacteria Trace /HPF (NEGATIVE) 01/13/25 08:29 Ur Culture Indicated? Yes/culture set up 01/13/25 08:29 Review of Systems Constitutional: Weakness Eyes: No Symptoms Reported ENT: No Symptoms Reported Respiratory: No Symptoms Reported Cardiovascular: No Symptoms Reported Gastrointestinal: No Symptoms Reported Genitourinary: Frequency Musculoskeletal: Other (joint pain) Skin: No Symptoms Reported Neurological: No Symptoms Reported Physical Exam Vital Signs: Vital Signs Temperature 97.9 F Pulse Rate 60 Pulse Rate 60 Pulse Rate 60 Pulse Rate 60 Pulse Rate 61 Pulse Rate 60 Pulse Rate 62 Pulse Rate 60 Pulse Rate 60 Pulse Rate 60 Pulse Rate 60 Pulse Rate 60 Pulse Rate 60 Pulse Rate 60 Pulse Rate 60 Pulse Rate 60 Pulse Rate 60 Respiratory Rate 20 Respiratory Rate 30 Respiratory Rate 24 Respiratory Rate 26 Respiratory Rate 52 Respiratory Rate 24 Respiratory Rate 24 Respiratory Rate 25 Respiratory Rate 23 Respiratory Rate 23 Respiratory Rate 29 Respiratory Rate 23 Respiratory Rate 30 Respiratory Rate 51 Respiratory Rate 20 Respiratory Rate 27 Respiratory Rate 20 Blood Pressure 147/70 Blood Pressure 137/59 Blood Pressure 142/65 Blood Pressure 149/65 Blood Pressure 153/67 Blood Pressure 155/70 Blood Pressure 145/63 Blood Pressure 145/63 Blood Pressure 145/63 Blood Pressure 145/63 Blood Pressure 138/63 Blood Pressure 138/63 Blood Pressure 138/63 Blood Pressure 129/64 Blood Pressure 146/65 Blood Pressure 152/64 Blood Pressure 144/64 Blood Pressure 142/63 Blood Pressure 149/64 Blood Pressure 195/77 O2 Sat by Pulse Oximetry 97 O2 Sat by Pulse Oximetry 96 O2 Sat by Pulse Oximetry 96 O2 Sat by Pulse Oximetry 98 O2 Sat by Pulse Oximetry 96 O2 Sat by Pulse Oximetry 96 O2 Sat by Pulse Oximetry 96 O2 Sat by Pulse Oximetry 95 O2 Sat by Pulse Oximetry 95 O2 Sat by Pulse Oximetry 97 O2 Sat by Pulse Oximetry 96 O2 Sat by Pulse Oximetry 95 O2 Sat by Pulse Oximetry 94 O2 Sat by Pulse Oximetry 98 O2 Sat by Pulse Oximetry 97 O2 Sat by Pulse Oximetry 99 Oriented: Normal Respiratory: Clear Throughout Auscultation: Bowel Sounds: Normal Palpation: Normal Tenderness: Normal Skin: Normal Musculoskeletal: Normal Psychiatric: Normal Mood Description: Calm Affect: Normal Speech Pattern: Clear and Appropriate Assessment/Plan (1) TIA (transient ischemic attack): Status: Acute (2) Dizziness: Status: Acute (3) UTI (urinary tract infection): Qualifiers: Hematuria presence: without hematuria Urinary tract infection type: a cute cystitis Qualified Code(s): N30.00 - Acute cystitis without hematuria Status: Acute (4) Generalized weakness: Status: Acute (5) CAD (coronary artery disease): Qualifiers: Associated angina: without angina Coronary Disease-Associated Artery/Lesion type: [place] artery [place] vs. transplanted heart: [place] heart Qualified Code(s): I25.10 - Atherosclerotic heart disease of [place] coronary artery without angina pectoris Status: Chronic (6) Aortic insufficiency: Qualifiers: Cardiac valve disease etiology: etiology unspecified Qualified Code(s): I35.1 - Nonrheumatic aortic (valve) insufficiency Status: Chronic (7) Atrial fibrillation: Qualifiers: Atrial fibrillation type: unspecified chronic Qualified Code(s): I48.20 - Chronic atrial fibrillation, unspecified Status: Chronic Review H&P Reviewed: Yes Patient was examined?: Yes
[2025-01-13] MEDS: FLECAINIDE 100 MG PO SCH (12:30)
[2025-01-14 05:52] LABS: MEAN PLATELET VOLUME 8.4 fL (7.4-11.0); RED CELL DISTRIBUTION WIDTH 14.7 % (11.6-16.5)
[2025-01-14 06:09] LABS: CREATININE 0.76 mg/dL (0.55-1.02); eGFR NON BLACK RACES > 60 (>60)
[2025-01-14] MEDS: ROCEPHIN VIAL 1 GRAM 1 G in NS 100 ML IV 100 ML IV SCH (08:30)
--- NOTE | 2025-01-14 10:20 | PCM.PROG ---
Progress Note Progress Note for Day of Date of Exam: 01/14/25 Subjective Subjective: Patient seen at bedside, no acute events overnight. She is feeling better today. She states dizziness has improved. She has been ambulating to the bathroom. Carotid US was negative, echo pending. She is on IV antibiotics for UTI. Urine Cx shows contamination. Orthostatic vitals positive. Denies any neurological deficits. Labs/imaging reviewed: -WBC 13 Hgb 12.9 K 4.4 Cr 0.76 -Urine Cx: contamination -Carotid US: no significant stenosis -Echo pending Plan: Continue hydration with NS, increase fluids. Follow echo results. Continue IV antibiotics. Send AIT UTI panel. Physical therapy evaluation. Continue home medications. Replace electrolytes as per protocol. Monitor a.m. labs and imaging. Past Medical Family Social History Allergies: Allergies No Known Drug Allergies Allergy (Unknown, Verified 09/16/24 10:44) Onset Date: 10/06/2020 Vital Signs and I&O's Vital Signs: Vital Signs Temperature 98.7 F Temperature 98 F Pulse Rate [Left Radial] 63 Pulse Rate [Left Radial] 60 Pulse Rate [Left Radial] 65 Pulse Rate [Left Radial] 65 Pulse Rate [Left Radial] 61 Respiratory Rate 18 Respiratory Rate 19 Blood Pressure [Left Arm] 96/53 Blood Pressure [Left Arm] 116/51 Blood Pressure [Left Arm] 125/56 Blood Pressure [Left Arm] 132/62 Blood Pressure [Left Arm] 137/63 O2 Sat by Pulse Oximetry 97 O2 Sat by Pulse Oximetry 94 Intake and Output: Intake & Output 01/11/25 01/12/25 01/13/25 01/14/25 23:59 23:59 23:59 23:59 Intake Total 643 / 643 316 / 316 Balance 643 / 643 316 / 316 Physical Exam Oriented: Normal Respiratory: Normal Cardiovascular: Normal Auscultation: Bowel Sounds: Normal Palpation: Normal Tenderness: Normal Skin: Normal Musculoskeletal: Normal Psychiatric: Normal Mood Description: Calm Affect: Normal Speech Pattern: Clear and Appropriate Laboratory and Diagnostics 01/14/25 05:30 01/14/25 05:30 Labs: 01/13/25 08:29 Urine,Clean Catch Urine Culture - Final Laboratory WBC 13.0 X10^3/uL (3.6-10.0) H 01/14/25 05:30 RBC 4.22 X10^6/uL (3.5-5.4) 01/14/25 05:30 Hgb 12.9 g/dL (12.0-16.0) 01/14/25 05:30 Hct 38.9 % (36.0-47.0) 01/14/25 05:30 MCV 92.4 fL (80.0-100.0) 01/14/25 05:30 MCH 30.7 pg (27.0-34.0) 01/14/25 05:30 MCHC 33.2 g/dL (33.0-35.0) 01/14/25 05:30 RDW 14.7 % (11.6-16.5) 01/14/25 05:30 Plt Count 239 X10^3/uL (150.0-450.0) 01/14/25 05:30 Plt Count Comment Adequate (ADEQUATE) 01/13/25 06:13 MPV 8.4 fL (7.4-11.0) 01/14/25 05:30 Neut % (Auto) 75.4 % (42.0-75.0) H 01/14/25 05:30 Lymph % (Auto) 16.1 % (21.0-51.0) L 01/14/25 05:30 [place] % (Auto) 7.2 % (0.0-13.0) 01/14/25 05:30 Eos % (Auto) 0.8 % (0.9-2.9) L 01/14/25 05:30 Baso % (Auto) 0.5 % (0.2-1.0) 01/14/25 05:30 Neut # (Auto) 9.8 x10^3/uL (2.2-4.8) H 01/14/25 05:30 Lymph # (Auto) 2.1 X10^3/uL (1.3-2.9) 01/14/25 05:30 [place] # (Auto) 0.9 x10^3/uL (0.3-0.8) H 01/14/25 05:30 Eos # (Auto) 0.1 x10^3/uL (0.0-0.2) 01/14/25 05:30 Baso # (Auto) 0.1 X10^3/uL (0.0-0.1) 01/14/25 05:30 Absolute Nucleated RBC 0.0 /100WBC 01/14/25 05:30 Total Counted 100 01/13/25 06:13 Neutrophils % (Manual) 56 % (39-76) 01/13/25 06:13 Lymphocytes % (Manual) 37 % (13-43) 01/13/25 06:13 Monocytes % (Manual) 5 % (4-9) 01/13/25 06:13 Eosinophils % (Manual) 1 % (0-6) 01/13/25 06:13 Atypical Lymphocytes Present 01/13/25 06:13 Plt Morphology Comment Normal (NORMAL) 01/13/25 06:13 RBC Morphology Normal (NORMAL) 01/13/25 06:13 PT 16.6 SECONDS (11.8-14.3) 01/13/25 06:13 INR Target Range - 01/13/25 06:13 INR 1.33 (0.8-1.3) H 01/13/25 06:13 APTT 33.3 SECONDS (22.9-36.5) 01/13/25 06:13 PTT Comment - 01/13/25 06:13 Sodium 139 mmol/L (136-145) 01/14/25 05:30 Corrected Sodium TNP 01/14/25 05:30 Potassium 4.4 mmol/L (3.5-5.1) 01/14/25 05:30 Chloride 104 mmol/L (98-107) 01/14/25 05:30 Carbon Dioxide 28.8 mmol/L (21-32) 01/14/25 05:30 BUN 13 mg/dL (7-18) 01/14/25 05:30 Creatinine 0.76 mg/dL (0.55-1.02) 01/14/25 05:30 Est GFR (MDRD) Af Amer > 60 (>60) 01/14/25 05:30 Est GFR (MDRD) Non-Af > 60 (>60) 01/14/25 05:30 Glucose 102 mg/dL (65-99) H 01/14/25 05:30 Calcium 9.1 mg/dL (8.5-10.1) 01/14/25 05:30 Corrected Calcium TNP 01/14/25 05:30 Magnesium 2.1 mg/dL (2.0-2.9) 01/14/25 05:30 Total Bilirubin 0.50 mg/dL (0.2-1.0) 01/14/25 05:30 AST 14 Units/L (15-37) L 01/14/25 05:30 ALT 13 Units/L (12-78) 01/14/25 05:30 Alkaline Phosphatase 125 Units/L (46-116) H 01/14/25 05:30 Creatine Kinase 63 Units/L (26-192) 01/13/25 18:12 Troponin I High Sens 6.9 ng/L (4.0-60.0) 01/13/25 18:12 B-Natriuretic Peptide 186 pg/mL (0-79) H 01/13/25 06:13 Total Protein 8.8 g/dL (6.4-8.2) H 01/14/25 05:30 Albumin 3.7 g/dL (3.4-5.0) 01/14/25 05:30 Globulin 5.1 g/dL (2.5-4.5) H 01/14/25 05:30 Albumin/Globulin Ratio 0.7 Ratio (1.1-2.1) L 01/14/25 05:30 Specimen Type Clean catch urine 01/13/25 08:29 Urine Color Pale yellow (YELLOW) 01/13/25 08:29 Urine Appearance Clear (CLEAR) 01/13/25 08:29 Urine pH 6.0 (5.0 - 8.0) 01/13/25 08:29 Ur Specific [place] 1.010 (1.000-1.030) 01/13/25 08:29 Urine Protein 1+ (NEGATIVE) 01/13/25 08:29 Urine Glucose (UA) Negative (NEGATIVE) 01/13/25 08:29 Urine Ketones Negative (NEGATIVE) 01/13/25 08:29 Urine Blood 1+ (NEGATIVE) 01/13/25 08:29 Urine Nitrite Negative (NEGATIVE) 01/13/25 08:29 Urine Bilirubin Negative (NEGATIVE) 01/13/25 08:29 Urine Urobilinogen Normal (NORMAL) 01/13/25 08:29 Ur Leukocyte Esterase 2+ (NEGATIVE) 01/13/25 08:29 Urine RBC 3-5 /HPF (0-3) A 01/13/25 08:29 Urine WBC 3-5 /HPF (0-5) 01/13/25 08:29 Ur Squamous Epith Cells Few /HPF (NEGATIVE) 01/13/25 08:29 Amorphous Sediment Trace /HPF (NEGATIVE) 01/13/25 08:29 Urine Bacteria Trace /HPF (NEGATIVE) 01/13/25 08:29 Ur Culture Indicated? Yes/culture set up 01/13/25 08:29 Plan (1) Orthostatic hypotension: Status: Acute (2) TIA (transient ischemic attack): Status: Acute (3) Dizziness: Status: Acute (4) UTI (urinary tract infection): Status: Acute Qualifiers: Hematuria presence: without hematuria Urinary tract infection type: a cute cystitis Qualified Code(s): N30.00 - Acute cystitis without hematuria (5) Generalized weakness: Status: Acute (6) CAD (coronary artery disease): Status: Chronic Qualifiers: Associated angina: without angina Coronary Disease-Associated Artery/Lesion type: [place] artery [place] vs. transplanted heart: [place] heart Qualified Code(s): I25.10 - Atherosclerotic heart disease of [place] coronary artery without angina pectoris (7) Aortic insufficiency: Status: Chronic Qualifiers: Cardiac valve disease etiology: etiology unspecified Qualified Code(s): I35.1 - Nonrheumatic aortic (valve) insufficiency (8) Atrial fibrillation: Status: Chronic Qualifiers: Atrial fibrillation type: unspecified chronic Qualified Code(s): I48.20 - Chronic atrial fibrillation, unspecified
[2025-01-14 14:01] LABS: MYELOCYTES % 1
[2025-01-15 04:31] VITALS: O2SAT 97
[2025-01-15 06:02] LABS: MEAN PLATELET VOLUME 8.8 fL (7.4-11.0); RED CELL DISTRIBUTION WIDTH 14.3 % (11.6-16.5)
[2025-01-15 06:20] LABS: COR CA(FOR HYPOALB) 9.4 mg/dL (8.5-10.1); CREATININE 0.74 mg/dL (0.55-1.02); eGFR NON BLACK RACES > 60 (>60)
[2025-01-15 07:53] VITALS: BP 111/54; PULSE 94; RESP 20; TEMP 98.2
== END 2025-01-15 10:45 | disposition home or self-care (01) ==
LOC: ER 05:59 → MED/SURG 05:59
PROVIDERS: ADMIT Internal Medicine; ATTEND Internal Medicine
DX: I35.1 Nonrheumatic aortic (valve) insufficiency; I95.1 Orthostatic hypotension; N39.0 Urinary tract infection, site not specified; R29.898 Other symptoms and signs involving the musculoskeletal system; R94.31 Abnormal electrocardiogram [ECG] [EKG]; Z95.0 Presence of cardiac pacemaker; R20.0 Anesthesia of skin; I42.9 Cardiomyopathy, unspecified; E03.8 Other specified hypothyroidism; Z66 Do not resuscitate; I48.20 Chronic atrial fibrillation, unspecified; W18.39XA Other fall on same level, initial encounter; R79.1 Abnormal coagulation profile; R53.1 Weakness; I25.10 Atherosclerotic heart disease of native coronary artery without angina pectoris; I10 Essential (primary) hypertension; G45.8 Other transient cerebral ischemic attacks and related syndromes; R26.89 Other abnormalities of gait and mobility; R42 Dizziness and giddiness

== ENCOUNTER 2025-04-14 20:30 | Inpatient (IN) ==
--- NOTE | 2025-04-14 20:42 | EKG ---
Test Reason : weakness, a-fib Blood Pressure : */* mmHG Vent. Rate : 116 BPM Atrial Rate : * BPM P-R Int : * ms QRS Dur : 110 ms QT Int : 352 ms P-R-T Axes : * 114 -51 degrees QTc Int : 489 ms Atrial fibrillation with rapid ventricular response Right bundle branch block T wave abnormality, consider inferolateral ischemia Abnormal ECG When compared with ECG of 13-JAN-2025 06:14, Atrial fibrillation has replaced Electronic atrial pacemaker Vent. rate has increased BY 55 BPM QRS axis shifted right T wave inversion now evident in Inferior leads T wave inversion now evident in Lateral leads Confirmed by Ramesh Leung MD ([id number]) on 04/15/2025 8:03:46 AM Referred By: Confirmed By: Ramesh Leung MD
--- NOTE | 2025-04-14 20:54 | DR.NAUSEAF ---
HPI Time Seen Time Seen by Provider: 04/14/25 20:30 Primary Care Physician Primary Care Physician: Nancy Hooks Complaints Chief Complaint Doctors Comments: 89-year-old female from home via EMS for weakness for 2 days With difficulty ambulating plus onset of nausea and vomiting this afternoon With increasing shortness of breath Also complains of frequent urination Chief Complaint:: pt in ed via ems with complaints of weakness x2 days and n/v that started this afternoon pt does report she has had an icrease in [place] and has been unable to even walk, denies chest pain. ems states on arrivval pt was diaphoretic and vomiting. COVID-19 Coronavirus risk:travel/contact w/high risk person: No Has patient experienced Coronavirus symptoms: No Source History Provided: Patient and EMS Mode of Arrival Mode of Arrival: EMS Timing Onset of Chief Complaint: 04/14/25 PMH PMH Past Medical History: Yes Past Medical History: Coronary Artery Disease, Hypertension and Hypothyroidism Past Medical History Comment: AFIB, TIA Past Surgical History: Yes Surgical History: Hysterectomy Family History History of Family Medical Conditions: Yes Family Medical History: Cancer Social History Do you use any recreational Drugs:: No Travel Risk Coronavirus risk:travel/contact w/high risk person: No Has patient experienced Coronavirus symptoms: No Infectious screening Have you traveled outside the country in the last 6 months?: No Isolation: Standard ROS Review of Systems Constitutional: No Symptoms Reported Eyes: No Symptoms Reported ENTM: No Symptoms Reported Respiratoy: See HPI and Short of Breath Cardiovascular: No Symptoms Reported Gastrointestinal/Abdominal: No Symptoms Reported Genitourinary: No Symptoms Reported Neurological: Weakness Musculoskeletal: No Symptoms Reported Integumentary: No Symptoms Reported Hematologic/Lymphatic: No Symptoms Reported Endocrine: No Symptoms Reported Psychiatric: No Symptoms Reported All Other Systems: Reviewed and Negative PE Vital Signs Vitals: Vital Signs Temperature 99.9 F Pulse Rate 106 Pulse Rate 103 Pulse Rate 114 Pulse Rate 117 Pulse Rate 128 Pulse Rate 122 Pulse Rate 120 Respiratory Rate 26 Respiratory Rate 26 Respiratory Rate 31 Respiratory Rate 28 Respiratory Rate 31 Respiratory Rate 31 Respiratory Rate 22 Blood Pressure 110/52 Blood Pressure 110/52 Blood Pressure 142/61 Blood Pressure 137/67 Blood Pressure 137/67 O2 Sat by Pulse Oximetry 94 O2 Sat by Pulse Oximetry 92 O2 Sat by Pulse Oximetry 91 O2 Sat by Pulse Oximetry 96 O2 Sat by Pulse Oximetry 91 O2 Sat by Pulse Oximetry 89 General Limitations: No Limitations General Appearance: Alert and In No Apparent Distress Head Head Exam: Normal Inspection Eyes Eye exam: Normal Appearance ENT ENT Exam: Normal Exam Neck Neck Exam: Normal Inspection Chest Chest Inspection: Normal Inspection Respiratory Respiratory Exam: Normal Lung Sounds Bilat Respiratory Exam: Bilateral: Clear to Auscultation Cardiovascular Cardiovascular Exam: Regular Rate, Normal Rhythm and Tachycardia Abdominal Exam Abdominal Exam: Normal Inspection, Normal Bowel Sounds and Soft Rectal Rectal Exam: Deferred External Exam: Female: Deferred : Speculum Exam (Female): Deferred : Bimanual Exam (female): Deferred Extremities Extremities Exam: Normal Inspection Back Back Exam: Normal Inspection Neurologic Neurological Exam: Alert and Oriented X3 Psychiatric Psychiatric Exam: Normal Affect and Normal Mood Skin Skin Exam: Warm, Dry, Intact and Normal Color COURSE Treatment Treatment: Discussed with Dr. Hammer will admit ROR Labs Reviewed 04/14/25 20:58 04/14/25 20:48 Laboratory: WBC 13.0 X10^3/uL (3.6-10.0) H 04/14/25 20:58 RBC 3.98 X10^6/uL (3.5-5.4) 04/14/25 20:58 Hgb 12.4 g/dL (12.0-16.0) 04/14/25 20:58 Hct 37.0 % (36.0-47.0) 04/14/25 20:58 MCV 92.8 fL (80.0-100.0) 04/14/25 20:58 MCH 31.2 pg (27.0-34.0) 04/14/25 20:58 MCHC 33.7 g/dL (33.0-35.0) 04/14/25 20:58 RDW 14.3 % (11.6-16.5) 04/14/25 20:58 Plt Count 136 X10^3/uL (150.0-450.0) L 04/14/25 20:58 Plt Count Comment Decreased (ADEQUATE) A 04/14/25 20:58 MPV 8.7 fL (7.4-11.0) 04/14/25 20:58 Neut % (Auto) 92.9 % (42.0-75.0) H 04/14/25 20:58 Lymph % (Auto) 2.2 % (21.0-51.0) L 04/14/25 20:58 [place] % (Auto) 4.6 % (0.0-13.0) 04/14/25 20:58 Eos % (Auto) 0.1 % (0.9-2.9) L 04/14/25 20:58 Baso % (Auto) 0.2 % (0.2-1.0) 04/14/25 20:58 Neut # (Auto) 12.1 x10^3/uL (2.2-4.8) H 04/14/25 20:58 Lymph # (Auto) 0.3 X10^3/uL (1.3-2.9) L 04/14/25 20:58 [place] # (Auto) 0.6 x10^3/uL (0.3-0.8) 04/14/25 20:58 Eos # (Auto) 0.0 x10^3/uL (0.0-0.2) 04/14/25 20:58 Baso # (Auto) 0.0 X10^3/uL (0.0-0.1) 04/14/25 20:58 Absolute Nucleated RBC 0.0 /100WBC 04/14/25 20:58 Total Counted 100 04/14/25 20:58 Neutrophils % (Manual) 95 % (39-76) H 04/14/25 20:58 Lymphocytes % (Manual) 2 % (13-43) L 04/14/25 20:58 Monocytes % (Manual) 3 % (4-9) L 04/14/25 20:58 Plt Morphology Comment Normal (NORMAL) 04/14/25 20:58 RBC Morphology Normal (NORMAL) 04/14/25 20:58 Sodium 138 mmol/L (136-145) 04/14/25 20:48 Corrected Sodium 140 mmol/L (136-145) 04/14/25 20:48 Potassium 3.6 mmol/L (3.5-5.1) 04/14/25 20:48 Chloride 101 mmol/L (98-107) 04/14/25 20:48 Carbon Dioxide 26.4 mmol/L (21-32) 04/14/25 20:48 BUN 32 mg/dL (7-18) H 04/14/25 20:48 Creatinine 1.57 mg/dL (0.55-1.02) H 04/14/25 20:48 Est GFR (MDRD) Af Amer 40 (>60) L 04/14/25 20:48 Est GFR (MDRD) Non-Af 33 (>60) L 04/14/25 20:48 Glucose 173 mg/dL (65-99) H 04/14/25 20:48 Lactic Acid 2.1 mmol/L (0.4-2.0) H 04/14/25 20:58 Calcium 8.6 mg/dL (8.5-10.1) 04/14/25 20:48 Corrected Calcium 9.2 mg/dL (8.5-10.1) 04/14/25 20:48 Total Bilirubin 0.80 mg/dL (0.2-1.0) 04/14/25 20:48 AST 28 Units/L (15-37) 04/14/25 20:48 ALT 27 Units/L (12-78) 04/14/25 20:48 Alkaline Phosphatase 120 Units/L (46-116) H 04/14/25 20:48 Creatine Kinase 15 Units/L (26-192) L 04/14/25 20:48 Troponin I High Sens 7.7 ng/L (4.0-60.0) 04/14/25 20:48 B-Natriuretic Peptide 429 pg/mL (0-79) H 04/14/25 20:48 Total Protein 7.5 g/dL (6.4-8.2) 04/14/25 20:48 Albumin 3.2 g/dL (3.4-5.0) L 04/14/25 20:48 Globulin 4.3 g/dL (2.5-4.5) 04/14/25 20:48 Albumin/Globulin Ratio 0.7 Ratio (1.1-2.1) L 04/14/25 20:48 Specimen Type Catherized urine 04/14/25 21:08 Urine Color Yellow (YELLOW) 04/14/25 21:08 Urine Appearance Cloudy (CLEAR) 04/14/25 21:08 Urine pH 6.0 (5.0 - 8.0) 04/14/25 21:08 Ur Specific [place] 1.025 (1.000-1.030) 04/14/25 21:08 Urine Protein 3+ (NEGATIVE) 04/14/25 21:08 Urine Glucose (UA) Negative (NEGATIVE) 04/14/25 21:08 Urine Ketones Negative (NEGATIVE) 04/14/25 21:08 Urine Blood 5+ (NEGATIVE) 04/14/25 21:08 Urine Nitrite Positive (NEGATIVE) 04/14/25 21:08 Urine Bilirubin Negative (NEGATIVE) 04/14/25 21:08 Urine Urobilinogen Normal (NORMAL) 04/14/25 21:08 Ur Leukocyte Esterase 1+ (NEGATIVE) 04/14/25 21:08 Urine RBC 30-50 /HPF (0-3) A 04/14/25 21:08 Urine WBC 20-30 /HPF (0-5) A 04/14/25 21:08 Ur Squamous Epith Cells Negative /HPF (NEGATIVE) 04/14/25 21:08 Amorphous Sediment 3+ /HPF (NEGATIVE) 04/14/25 21:08 Urine Bacteria 4+ /HPF (NEGATIVE) 04/14/25 21:08 Ur Culture Indicated? Yes/culture set up 04/14/25 21:08 SARS-CoV-2 (PCR) Negative (NEGATIVE) 04/14/25 20:14 Influenza Type A (PCR) Negative (NEGATIVE) 04/14/25 20:14 Influenza Type B (PCR) Negative (NEGATIVE) 04/14/25 20:14 RSV (PCR) Negative (NEGATIVE) 04/14/25 20:14 Opioid Opioid Risk Tool Age (Min box if 16-45): No History of Preadolescent Sexual Abuse: No Total: 0 Total Score Risk Category: Low Risk Copyright: Sameer DUMONT predicting aberrant behaviors Discharge Plan Diagnosis Discharge Problem: UTI (urinary tract infection), Acute kidney insufficiency Discharge Plan Patient Disposition: 09 ADMITTED INPATIENT Condition: Stable Prescriptions: No Action flecainide 150 mg tablet 150 mg PO Q12H Qty: 180 3RF levothyroxine 25 mcg tablet 25 mcg PO QDAY diltiazem HCl 120 mg capsule,extended release 24hr 120 mg PO QDAY ergocalciferol (vitamin D2) [Vitamin D2] 1,250 mcg (50,000 unit) capsule 1,250 mcg PO QWEEK Eliquis 5 mg tablet 5 mg PO BID metoprolol tartrate 25 mg tablet 25 mg PO BID Health Concerns: Post Hospitalization: new medications and changes needed to prevent readmission or further decline. Pt educated and given instructions on all concerns. Plan of Treatment: Continue with present treatment and follow up plan. Pt is to keep follow up appointment as instructed and take medications as ordered. Follow ups/Referrals Follow ups/Referrals: NFD,None [Primary Care Provider] - 3 days Instructions Print Language: TAMAZIGHT
[2025-04-14 21:15] LABS: BLOOD/HEMOGLOBIN,URINE 5+ (NEGATIVE); LEUKOCYTE ESTERASE ,URINE 1+ (NEGATIVE); NITRITES,URINE POSITIVE (NEGATIVE)
[2025-04-14 21:19] LABS: MEAN PLATELET VOLUME 8.7 fL (7.4-11.0); RED CELL DISTRIBUTION WIDTH 14.3 % (11.6-16.5)
[2025-04-14 21:25] LABS: COR CA(FOR HYPOALB) 9.2 mg/dL (8.5-10.1); COR NA(FOR HYPERGLY) 140.0 mmol/L (136-145); CREATININE 1.57 mg/dL (0.55-1.02); eGFR NON BLACK RACES 33.0 (>60)
[2025-04-14 21:28] LABS: APPEARANCE,URINE CLOUDY (CLEAR)
[2025-04-14 21:29] LABS: SQUAMOUS EPITHELIAL CELL,UR NEGATIVE /HPF (NEGATIVE)
--- NOTE | 2025-04-14 21:35 | RAD ---
EXAM: CHEST, 1 VIEW HISTORY: weakness x2 days and n/v that started this afternoon pt does report she has had an icrease in [place] and has been unable to even walk, denies chest pain.; COMPARISON: January 13, 2025 FINDINGS: No pneumothorax. No pleural effusion. Prominence bilateral hilum suggests pulmonary artery hypertension. Pacemaker. Moderate cardiomegaly. No acute CHF. Minimal central venous congestion noted The bones are unremarkable. IMPRESSION: 1. Stable cardiomegaly. Pulmonary artery hypertension. No pneumonia THIS IS AN ELECTRONICALLY VERIFIED FINAL REPORT 04/14/2025 9:31 PM - Electronically signed by Natalie Johnson MD
[2025-04-14 21:45] LABS: PLATELET MORPHOLOGY COMMENT NORMAL (NORMAL)
[2025-04-14] MEDS ORDERED: NS 250 ML IV 25 ML IV PRN (21:56)
--- NOTE | 2025-04-14 22:06 | DR.NAUSEAF ---
HPI Time Seen Time Seen by Provider: 04/14/25 20:30 Primary Care Physician Primary Care Physician: Nancy Hooks Complaints Chief Complaint:: pt in ed via ems with complaints of weakness x2 days and n/v that started this afternoon pt does report she has had an icrease in [place] and has been unable to even walk, denies chest pain. ems states on arrivval pt was diaphoretic and vomiting. COVID-19 Coronavirus risk:travel/contact w/high risk person: No Has patient experienced Coronavirus symptoms: No Source History Provided: Patient and EMS Mode of Arrival Mode of Arrival: EMS Timing Onset of Chief Complaint: 04/14/25 PMH PMH Past Medical History: Yes Past Medical History: Coronary Artery Disease, Hypertension and Hypothyroidism Past Medical History Comment: AFIB, TIA Past Surgical History: Yes Surgical History: Hysterectomy Family History History of Family Medical Conditions: Yes Family Medical History: Cancer Social History Do you use any recreational Drugs:: No Travel Risk Coronavirus risk:travel/contact w/high risk person: No Has patient experienced Coronavirus symptoms: No Infectious screening Have you traveled outside the country in the last 6 months?: No Isolation: Standard PE Vital Signs Vitals: Vital Signs Temperature 99.9 F Pulse Rate 106 Pulse Rate 103 Pulse Rate 114 Pulse Rate 117 Pulse Rate 128 Pulse Rate 122 Pulse Rate 120 Respiratory Rate 26 Respiratory Rate 26 Respiratory Rate 31 Respiratory Rate 28 Respiratory Rate 31 Respiratory Rate 31 Respiratory Rate 22 Blood Pressure 110/52 Blood Pressure 110/52 Blood Pressure 142/61 Blood Pressure 137/67 Blood Pressure 137/67 O2 Sat by Pulse Oximetry 94 O2 Sat by Pulse Oximetry 92 O2 Sat by Pulse Oximetry 91 O2 Sat by Pulse Oximetry 96 O2 Sat by Pulse Oximetry 91 O2 Sat by Pulse Oximetry 89 ROR Labs Reviewed 04/14/25 20:58 04/14/25 20:48 Laboratory: WBC 13.0 X10^3/uL (3.6-10.0) H 04/14/25 20:58 RBC 3.98 X10^6/uL (3.5-5.4) 04/14/25 20:58 Hgb 12.4 g/dL (12.0-16.0) 04/14/25 20:58 Hct 37.0 % (36.0-47.0) 04/14/25 20:58 MCV 92.8 fL (80.0-100.0) 04/14/25 20: MCH 31.2 pg (27.0-34.0) 04/14/25 20: MCHC 33.7 g/dL (33.0-35.0) 04/14/25 20: RDW 14.3 % (11.6-16.5) 04/14/25 20: Plt Count 136 X10^3/uL (150.0-450.0) L 04/14/25 20: Plt Count Comment Decreased (ADEQUATE) A 04/14/25 20: MPV 8.7 fL (7.4-11.0) 04/14/25 20: Neut % (Auto) 92.9 % (42.0-75.0) H 04/14/25 20: Lymph % (Auto) 2.2 % (21.0-51.0) L 04/14/25 20: [place] % (Auto) 4.6 % (0.0-13.0) 04/14/25 20: Eos % (Auto) 0.1 % (0.9-2.9) L 04/14/25 20:58 Baso % (Auto) 0.2 % (0.2-1.0) 04/14/25 20: Neut # (Auto) 12.1 x10^3/uL (2.2-4.8) H 04/14/25 20:58 Lymph # (Auto) 0.3 X10^3/uL (1.3-2.9) L 04/14/25 20:58 [place] # (Auto) 0.6 x10^3/uL (0.3-0.8) 04/14/25 20: Eos # (Auto) 0.0 x10^3/uL (0.0-0.2) 04/14/25 20: Baso # (Auto) 0.0 X10^3/uL (0.0-0.1) 04/14/25 20: Absolute Nucleated RBC 0.0 /100WBC 04/14/25 20:58 Total Counted 100 04/14/25 20:58 Neutrophils % (Manual) 95 % (39-76) H 04/14/25 20: Lymphocytes % (Manual) 2 % (13-43) L 04/14/25 20:58 Monocytes % (Manual) 3 % (4-9) L 04/14/25 20:58 Plt Morphology Comment Normal (NORMAL) 04/14/25 20:58 RBC Morphology Normal (NORMAL) 04/14/25 20:58 Sodium 138 mmol/L (136-145) 04/14/25 20:48 Corrected Sodium 140 mmol/L (136-145) 04/14/25 20:48 Potassium 3.6 mmol/L (3.5-5.1) 04/14/25 20:48 Chloride 101 mmol/L (98-107) 04/14/25 20:48 Carbon Dioxide 26.4 mmol/L (21-32) 04/14/25 20:48 BUN 32 mg/dL (7-18) H 04/14/25 20:48 Creatinine 1.57 mg/dL (0.55-1.02) H 04/14/25 20:48 Est GFR (MDRD) Af Amer 40 (>60) L 04/14/25 20:48 Est GFR (MDRD) Non-Af 33 (>60) L 04/14/25 20:48 Glucose 173 mg/dL (65-99) H 04/14/25 20:48 Lactic Acid 2.1 mmol/L (0.4-2.0) H 04/14/25 20:58 Calcium 8.6 mg/dL (8.5-10.1) 04/14/25 20:48 Corrected Calcium 9.2 mg/dL (8.5-10.1) 04/14/25 20:48 Total Bilirubin 0.80 mg/dL (0.2-1.0) 04/14/25 20:48 AST 28 Units/L (15-37) 04/14/25 20:48 ALT 27 Units/L (12-78) 04/14/25 20:48 Alkaline Phosphatase 120 Units/L (46-116) H 04/14/25 20:48 Creatine Kinase 15 Units/L (26-192) L 04/14/25 20:48 Troponin I High Sens 7.7 ng/L (4.0-60.0) 04/14/25 20:48 B-Natriuretic Peptide 429 pg/mL (0-79) H 04/14/25 20:48 Total Protein 7.5 g/dL (6.4-8.2) 04/14/25 20:48 Albumin 3.2 g/dL (3.4-5.0) L 04/14/25 20:48 Globulin 4.3 g/dL (2.5-4.5) 04/14/25 20:48 Albumin/Globulin Ratio 0.7 Ratio (1.1-2.1) L 04/14/25 20:48 Specimen Type Catherized urine 04/14/25 21:08 Urine Color Yellow (YELLOW) 04/14/25 21:08 Urine Appearance Cloudy (CLEAR) 04/14/25 21:08 Urine pH 6.0 (5.0 - 8.0) 04/14/25 21:08 Ur Specific [place] 1.025 (1.000-1.030) 04/14/25 21:08 Urine Protein 3+ (NEGATIVE) 04/14/25 21:08 Urine Glucose (UA) Negative (NEGATIVE) 04/14/25 21:08 Urine Ketones Negative (NEGATIVE) 04/14/25 21:08 Urine Blood 5+ (NEGATIVE) 04/14/25 21:08 Urine Nitrite Positive (NEGATIVE) 04/14/25 21:08 Urine Bilirubin Negative (NEGATIVE) 04/14/25 21:08 Urine Urobilinogen Normal (NORMAL) 04/14/25 21:08 Ur Leukocyte Esterase 1+ (NEGATIVE) 04/14/25 21:08 Urine RBC 30-50 /HPF (0-3) A 04/14/25 21:08 Urine WBC 20-30 /HPF (0-5) A 04/14/25 21:08 Ur Squamous Epith Cells Negative /HPF (NEGATIVE) 04/14/25 21:08 Amorphous Sediment 3+ /HPF (NEGATIVE) 04/14/25 21:08 Urine Bacteria 4+ /HPF (NEGATIVE) 04/14/25 21:08 Ur Culture Indicated? Yes/culture set up 04/14/25 21:08 SARS-CoV-2 (PCR) Negative (NEGATIVE) 04/14/25 20:14 Influenza Type A (PCR) Negative (NEGATIVE) 04/14/25 20:14 Influenza Type B (PCR) Negative (NEGATIVE) 04/14/25 20:14 RSV (PCR) Negative (NEGATIVE) 04/14/25 20:14 Opioid Opioid Risk Tool Age (Min box if 16-45): No History of Preadolescent Sexual Abuse: No Total: 0 Total Score Risk Category: Low Risk Copyright: Sameer DUMONT predicting aberrant behaviors Discharge Plan Diagnosis Discharge Problem: UTI (urinary tract infection), Acute kidney insufficiency Discharge Plan Patient Disposition: 09 ADMITTED INPATIENT Condition: Stable Prescriptions: No Action flecainide 150 mg tablet 150 mg PO Q12H Qty: 180 3RF levothyroxine 25 mcg tablet 25 mcg PO QDAY diltiazem HCl 120 mg capsule,extended release 24hr 120 mg PO QDAY ergocalciferol (vitamin D2) [Vitamin D2] 1,250 mcg (50,000 unit) capsule 1,250 mcg PO QWEEK Eliquis 5 mg tablet 5 mg PO BID metoprolol tartrate 25 mg tablet 25 mg PO BID Health Concerns: Post Hospitalization: new medications and changes needed to prevent readmission or further decline. Pt educated and given instructions on all concerns. Plan of Treatment: Continue with present treatment and follow up plan. Pt is to keep follow up appointment as instructed and take medications as ordered. Orders to Discharge Patient Discharge Orders: Transfer (Routine); Ordered 04/14/25 Ordered By: Ryan Vieira Follow ups/Referrals Follow ups/Referrals: [facility],None [Primary Care Provider] - 3 days Instructions Print Language: BELARUSIAN
[2025-04-14] MEDS: ZOSYN VIAL 3.375 GRAMS 3.375 G in NS 100 ML IV 100 ML IV SCH (22:13)
[2025-04-14] MEDS: NS 1,000 ML IV 1,000 ML IV ONE (22:13)
[2025-04-14 23:11] VITALS: BMI 28.8
[2025-04-14] MEDS: NS 1,000 ML IV 1,000 ML IV SCH (23:55)
[2025-04-14] MEDS: ELIQUIS PO SCH (23:56)
[2025-04-15] MEDS: NS 250 ML IV 25 ML IV PRN (05:08)
[2025-04-15 05:45] LABS: MEAN PLATELET VOLUME 8.5 fL (7.4-11.0); RED CELL DISTRIBUTION WIDTH 14.1 % (11.6-16.5)
[2025-04-15 06:04] LABS: COR CA(FOR HYPOALB) 9.0 mg/dL (8.5-10.1); COR NA(FOR HYPERGLY) 143.0 mmol/L (136-145); CREATININE 1.27 mg/dL (0.55-1.02); eGFR NON BLACK RACES 42.0 (>60)
[2025-04-15] MEDS: ZOSYN VIAL 3.375 GRAMS 3.375 G in NS 100 ML IV 100 ML IV SCH (07:08)
[2025-04-15] MEDS: LOPRESSOR TAB 25 MG PO SCH ×2 (08:39→09:52)
[2025-04-15] MEDS: SYNTHROID 25 mcg TAB PO SCH (08:39)
[2025-04-15] MEDS: CARDIZEM CD 120 MG 24-HR PO SCH (08:39)
[2025-04-15] MEDS: ELIQUIS PO SCH (09:51)
[2025-04-15] MEDS: TAMBOCOR PO SCH (09:51)
[2025-04-15] MEDS: VITAMIN D (1.25MG) PO SCH (10:02)
[2025-04-16 06:04] LABS: MEAN PLATELET VOLUME 9.4 fL (7.4-11.0); RED CELL DISTRIBUTION WIDTH 14.3 % (11.6-16.5)
[2025-04-16 06:19] LABS: COR CA(FOR HYPOALB) 9.1 mg/dL (8.5-10.1); CREATININE 1.00 mg/dL (0.55-1.02); eGFR NON BLACK RACES 56 (>60)
--- NOTE | 2025-04-16 08:06 | EKG ---
Test Reason : afib Blood Pressure : */* mmHG Vent. Rate : 64 BPM Atrial Rate : 64 BPM P-R Int : 202 ms QRS Dur : 108 ms QT Int : 434 ms P-R-T Axes : 81 25 -30 degrees QTc Int : 447 ms Normal sinus rhythm with sinus arrhythmia Low voltage QRS Incomplete right bundle branch block Nonspecific ST and T wave abnormality Abnormal ECG When compared with ECG of 14-APR-2025 20:41, Sinus rhythm has replaced Atrial fibrillation Vent. rate has decreased BY 52 BPM QRS axis shifted left Nonspecific T wave abnormality has replaced inverted T waves in Lateral leads Confirmed by Ramesh Leung MD ([id number]) on 04/16/2025 9:10:42 AM Referred By: Confirmed By: Ramesh Leung MD
[2025-04-16] MEDS: VITAMIN D (1.25MG) PO SCH (08:17)
[2025-04-17 06:02] LABS: MEAN PLATELET VOLUME 9.3 fL (7.4-11.0); RED CELL DISTRIBUTION WIDTH 14.3 % (11.6-16.5)
[2025-04-17 06:14] LABS: COR CA(FOR HYPOALB) 9.8 mg/dL (8.5-10.1); COR NA(FOR HYPERGLY) 145 mmol/L (136-145); CREATININE 0.85 mg/dL (0.55-1.02); eGFR NON BLACK RACES > 60 (>60)
[2025-04-17] MEDS: LEVAQUIN PREMIX IV 500 MG 500 MG/100 ML BAG IV SCH (09:35)
[2025-04-17] MEDS: NS 250 ML IV 250 ML IV ONE (09:40)
[2025-04-17] MEDS: LASIX IVP ONE (10:37)
[2025-04-17] MEDS: LEVAQUIN PREMIX IV 250 MG 250 MG/50 ML BAG IV NR (11:43)
[2025-04-18 04:07] VITALS: RESP 18
[2025-04-18 04:56] LABS: MEAN PLATELET VOLUME 9.0 fL (7.4-11.0); RED CELL DISTRIBUTION WIDTH 13.7 % (11.6-16.5)
[2025-04-18 05:08] LABS: COR CA(FOR HYPOALB) 10.0 mg/dL (8.5-10.1); COR NA(FOR HYPERGLY) 144 mmol/L (136-145); CREATININE 0.78 mg/dL (0.55-1.02); eGFR NON BLACK RACES > 60 (>60)
[2025-04-18] MEDS ORDERED: CONSULT PHARMACY - POTASSIUM & MAGNESIUM XX SCH (06:00)
[2025-04-18 07:41] VITALS: BP 138/61; PULSE 68; TEMP 98; O2SAT 96
[2025-04-18] MEDS: LEVAQUIN PREMIX IV 750 MG 750 MG/150 ML BAG IV SCH (09:00)
[2025-04-18] MEDS: K-DUR TAB 20 MEQ PO ONE (09:01)
== END 2025-04-18 10:30 | disposition home or self-care (01) | DRG 872 ==
LOC: MED/SURG 20:30 → ER 20:30 → OBSVTOIN 22:07 → MED/SURG 22:28
PROVIDERS: ADMIT Obstetrics & Gynecology Obstetrics; ATTEND Obstetrics & Gynecology Obstetrics
DX: R26.89 Other abnormalities of gait and mobility; E03.8 Other specified hypothyroidism; I25.10 Atherosclerotic heart disease of native coronary artery without angina pectoris; R79.89 Other specified abnormal findings of blood chemistry; B96.29 Other Escherichia coli [E. coli] as the cause of diseases classified elsewhere; A41.51 Sepsis due to Escherichia coli [E. coli]; R06.02 Shortness of breath; R53.1 Weakness; I10 Essential (primary) hypertension; I48.91 Unspecified atrial fibrillation; R94.31 Abnormal electrocardiogram [ECG] [EKG]; E11.65 Type 2 diabetes mellitus with hyperglycemia; N17.8 Other acute kidney failure; E86.0 Dehydration; Z03.818 Encounter for observation for suspected exposure to other biological agents ruled out; Z66 Do not resuscitate; Z86.73 Personal history of transient ischemic attack (TIA), and cerebral infarction without residual deficits; N39.0 Urinary tract infection, site not specified; R11.2 Nausea with vomiting, unspecified